=== PATIENT | male | born 1965 | race Caucasian/White ===

== ENCOUNTER 2018-03-18 07:58 | Day surgery (SDC) | payer OTHER ==
[2018-03-15 16:45] VITALS: BMI 33.2
[2018-03-18 09:56] VITALS: TEMP 97.8
[2018-03-18 10:17] VITALS: PULSE 56
[2018-03-18 10:54] VITALS: BP 114/67
--- NOTE | 2018-03-19 09:52 | PATH ---
Surgical Pathology Report Patient Name: PEACE VANEGAS [facility] [place]. Rec. #: [id number] /Age/Gender: 1965 (Age: 52) / M Account: [id number] Location: U-ENDOSCOPY Taken: 03/18/2018 Received: 03/18/2018 Reported: 03/19/2018 Physicians: Jakob Johnston D.O. Specimen(s) Received BX CECAL POLYP Clinical History Colon cancer screening Postoperative diagnosis: Polyp Final Diagnosis CECAL POLYP, POLYPECTOMY: HYPERPLASTIC POLYP, FRAGMENTED. Electronically Signed Vinita Hubbard M.D. Gross Description Received in formalin labeled "cecal polyp," is a 0.4 x 0.3 x 0.1 cm aggregate of mckeon soft tissue fragments. The formalin is filtered and the specimen is entirely submitted in one cassette. 03/18/2018 [facility]03/18/2018
== END 2018-03-18 10:54 | disposition home or self-care (01) ==
LOC: JASU-ENDO 07:58
PROVIDERS: ATTEND Internal Medicine Gastroenterology
PROC: 3E0H8GC Introduction of Other Therapeutic Substance into Lower GI, Via Natural or Artificial Opening Endoscopic (ICD-10-PCS; 2018-03-18)
PROC: 0DBH8ZX Excision of Cecum, Via Natural or Artificial Opening Endoscopic, Diagnostic (ICD-10-PCS; principal; 2018-03-18 09:00)
DX: Z12.11 Encounter for screening for malignant neoplasm of colon (principal); K63.5 Polyp of colon
CPT/HCPCS: 88305-TC

== ENCOUNTER 2018-06-18 14:54 | Inpatient (IN) | payer OTHER ==
--- NOTE | 2018-06-18 15:25 | PDOC ---
Rapid Medical Evaluation Medical Evaluation: Allergies Allergy/AdvReac Type Severity Reaction Status Date / Time No Known Drug Allergies Allergy Verified 08/15/12 15:01 I have performed a brief in-person evaluation of this patient. The patient presents with a chief complaint of: Hx of psoriasis, anxiety (on Paxil), C/O feeling lack of confidence, jittery; states he is hearing voices for past few days; denies S/H ideation; per family, patient is asking strange questions Pertinent physical exam findings: In NAD I have ordered the following: Labs The patient will proceed to the ED for further evaluation. 06/18/18 15:22
--- NOTE | 2018-06-18 16:05 | PDOC ---
History of Present Illness - General Chief Complaint: Psychiatric Stated Complaint: CONFUSION Time Seen by Provider: 06/18/18 15:22 History Source: Patient, Family Exam Limitations: No Limitations - History of Present Illness Initial Comments: 06/18/18 16:08 Patient is a 52M with history of anxiety and OCD here today complaining of bizarre behavior. He was brought in by his family after he was found to be responding to auditory hallucinations, reporting that he was concerned that his phones had been bugged, and yelling out the window at unknown people plotting against him. The family states that he has had some obsessive behaviors in the past, but nothing like this. Denies fevers, chills, headache. Endorses some cramping in his neck and back. Denies chest pain, cough, shortness of breath, abdominal pain and dysuria. Patient reports that he takes paxil and humira, and has for years. He reports that he recently stopped taking his paxil for a few weeks before resuming a couple of days ago. Denies SI/HI. Past History - Past Medical History Allergies/Adverse Reactions: Allergies Allergy/AdvReac Type Severity Reaction Status Date / Time No Known Drug Allergies Allergy Verified 06/18/18 15:22 Home Medications: Ambulatory Orders Adalimumab [Humira] 40 mg SQ UTDICT 08/15/12 Paroxetine HCl [Paxil -] 20 mg PO DAILY 08/15/12 Anemia: No Asthma: No Cancer: No Cardiac Disorders: No CVA: No COPD: No CHF: No Dementia: No Diabetes: No GI Disorders: No Disorders: No HTN: Yes Hypercholesterolemia: No Liver Disease: No Seizures: No Thyroid Disease: No Other medical history: psoariasis - Suicide/Smoking/Psychosocial Hx Smoking History: Unknown if ever smoked Hx Alcohol Use: No Drug/Substance Use Hx: No Substance Use Type: None Hx Substance Use Treatment: No Review of Systems - Review of Systems Able to Perform ROS?: Yes Comments:: 06/18/18 16:13 GENERAL/CONSTITUTIONAL: No fever or chills. No weakness. HEAD, EYES, EARS, NOSE AND THROAT: No change in vision. No sore throat. CARDIOVASCULAR: No chest pain or shortness of breath RESPIRATORY: No cough, wheezing, or hemoptysis. GASTROINTESTINAL: No nausea, vomiting, diarrhea or constipation. GENITOURINARY: No dysuria, frequency, or change in urination. MUSCULOSKELETAL: No joint or muscle swelling or pain. No neck or back pain. SKIN: No rash NEUROLOGIC: No headache, vertigo, loss of consciousness, or change in strength/ sensation. ENDOCRINE: No increased thirst. No abnormal weight change ALLERGIC/IMMUNOLOGIC: No hives or skin allergy. *Physical Exam - Vital Signs Last Vital Signs Temp Pulse Resp BP Pulse Ox 99.2 F 114 H 20 183/100 H 99 06/18/18 15:24 06/18/18 15:24 06/18/18 15:24 06/18/18 15:24 06/18/18 15:24 - Physical Exam Comments: 06/18/18 16:13 GENERAL: Awake, alert, and fully oriented, in no acute distress PSYCH: Mood is anxious, affect congruent, no SI/HI. No pressured speech. No obvious responses to internal stimuli. HEAD: No signs of trauma, normocephalic, atraumatic EYES: PERRLA, EOMI, sclera anicteric, conjunctiva clear ENT: Auricles normal inspection, hearing grossly normal, nares patent, oropharynx clear without exudates. Moist mucosa NECK: Normal ROM, supple, no lymphadenopathy, JVD, or masses LUNGS: No distress, speaks full sentences, clear to auscultation bilaterally HEART: Regular rate and rhythm, normal S1 and S2, no murmurs, rubs or gallops, peripheral pulses normal and equal bilaterally. ABDOMEN: Soft, nontender, normoactive bowel sounds. No guarding, no rebound. No masses EXTREMITIES: Normal inspection, Normal range of motion, no edema. No clubbing or cyanosis. NEUROLOGICAL: Cranial nerves II through XII grossly intact. Normal speech, normal gait, no focal sensorimotor deficits SKIN: Warm, Dry, normal turgor, no rashes or lesions noted. Moderate Sedation - Procedure Monitoring Vital Signs: Procedure Monitoring Vital Signs Temperature 99.2 F 06/18/18 15:24 Pulse Rate 114 H 06/18/18 15:24 Respiratory Rate 20 06/18/18 15:24 Blood Pressure 183/100 H 06/18/18 15:24 O2 Sat by Pulse Oximetry (%) 99 06/18/18 15:24 Procedures - Lumbar Puncture Indication: Meningitis, Encephalitis CT Scan: Yes Betadine Prep: Yes Position: Left lateral decubitus Site: L4-L51 Local Anesthesia: 1% Lidocaine with epi Volume(ml): 3 Lumbar Puncture Kit: Adult Needle Size(gauge): 20 Opening Pressure(mmHg): 25 Traumatic Tap: No Tubes Obtained: 4 Clear Fluid: Yes Complications: No Progress: 06/18/18 19:06 Consent obtained, signed form. Tolerated without complications. ED Treatment Course - LABORATORY CBC & Chemistry Diagram: 06/18/18 16:46 06/18/18 16:46 - RADIOLOGY Radiology Studies Ordered: Category Date Time Status HEAD CT WITHOUT CONTRAST [CT] Stat CT Scan 06/18/18 15:46 Ordered CHEST X-RAY PORTABLE* [RAD] Stat Radiology 06/18/18 15:46 Ordered Medical Decision Making - Medical Decision Making 06/18/18 16:14 Patient is 52M with history of ocd and anxiety here today with abnormal behavior. Vitals notable for tachycardia and hypertension. Suspect related to discontinuation of medications, but will evaluate for mass and infection. 06/18/18 19:07 Rectal temp 100.7, septic order set initiated. CT normal. CBC shows small leukocytosis. CMP reassuring. Lactic acid normal. Given fever and psych changes, meninigits and encephalitis being considered. Lumbar puncture performed as per procedure note. Covered with acyclovir, ceftriaxone, vancomycin. Will admit. Case d/w Dr Durant. *DC/Admit/Observation/Transfer Diagnosis at time of Disposition: Altered mental state, Fever - Discharge Dispostion Condition at time of disposition: Fair Decision to Admit order: Yes - Referrals - Patient Instructions - Post Discharge Activity
[2018-06-18 17:07] LABS: BASO % 1.1 % (0-2.0); EOS % 0.7 % (0-4.5); HEMATOCRIT 45.8 % (35.4-49); HEMOGLOBIN 15.8 GM/dL (11.7-16.9); LYMPH % 24.4 % (8-40); MCH 29.8 pg (25.7-33.7); MCHC 34.4 g/dl (32.0-35.9); MEAN CELL VOLUME 86.6 fl (80-96); MONO % 9.7 % (3.8-10.2); NEUT % 64.1 % (42.8-82.8); PLATELET COUNT 334 K/MM3 (134-434); RBC 5.28 M/mm3 (4.00-5.60); RDW 13.6 % (11.9-15.9); WHITE BLOOD COUNT 10.6 K/mm3 (4.0-10.0)
[2018-06-18 17:17] LABS: URINE APPEARANCE CLEAR; URINE BILIRUBIN NEGATIVE (<2.0 mg/dL); URINE COLOR YELLOW; URINE GLUCOSE (UA) 1+ (NEGATIVE); URINE KETONE NEGATIVE (NEGATIVE); URINE LEUK ESTERASE NEGATIVE (NEGATIVE); URINE NITRITE NEGATIVE (NEGATIVE); URINE PROTEIN 1+ (NEGATIVE); URINE UROBILINOGEN NEGATIVE mg/dL (0.2-1.0)
[2018-06-18 17:29] LABS: EPI CELLS RARE /HPF (FEW); URINE MUCUS RARE
[2018-06-18] MEDS ORDERED: VANCOMYCIN 1 GM in D5W (PRE-DOCKED) 1,000 MG/250 ML IVPB ONE (17:31)
[2018-06-18] MEDS ORDERED: CEFTRIAXONE 2,000 MG in DEXTROSE 5%-WATER - 50 ML IVPB ONE (17:31)
[2018-06-18] MEDS ORDERED: ACYCLOVIR IVPB ONE (17:32)
[2018-06-18] MEDS ORDERED: WATER IVPB ONE (17:32)
[2018-06-18] MEDS ORDERED: DEXTROSE 5% IVPB ONE (17:32)
[2018-06-18 17:35] LABS: ANION GAP 7 MMOL/L (8-16); BLOOD UREA NITROGEN 9 mg/dL (7-18); CALCIUM 9.1 mg/dL (8.5-10.1); CHLORIDE 109 mmol/L (98-107); CO2 25 mmol/L (21-32); CREATININE 1.2 mg/dL (0.55-1.3); GLUCOSE,RANDOM 124 mg/dL (74-106); POTASSIUM 3.8 mmol/L (3.5-5.1); SODIUM 141 mmol/L (136-145)
[2018-06-18] MEDS ORDERED: DEXAMETHASONE SOD PHOSPHATE 10 MG/1 ML VIAL IVPUSH ONE (17:47)
[2018-06-18] MEDS ORDERED: CEFTRIAXONE 2 GM/100 ML BAG IVPB ONE (18:04)
[2018-06-18] MEDS ORDERED: DEXAMETHASONE SOD PHOSPHATE 10 MG/1 ML VIAL ONE (18:12)
[2018-06-18] MEDS ORDERED: VANCOMYCIN 1 GRAM (PRE-DOCKED) 1,000 MG/250 ML BAG IVPB ONE (18:12)
--- NOTE | 2018-06-18 18:21 | CON.PSY ---
Psychiatry Consult Chief Complaint: 52 year old male with a history od DEpression stevie hallucinating according to his family. patient had been Paxil which he stopped taking but restarted few days ago. Patient has fever, LP is being done to rule out PHYSICALLY IMPAIRED TEACHER pathology. patient has been cooperative with procedure, andf willing to sta in the hospital for further eval. Symptoms: reports: Depressed Mood, Hallucinations - Previous Psychiatric Treatment Outpatient: Less than 6 mos ago Inpatient: None - Previous Substance Abuse Treatment Outpatient: None Inpatient: None - Reason for Previous Treatment Reason for Previous Treatment: Major Depression - Current Medications Current Medications: Active Medications Acyclovir 950 mg/ Dextrose 119 mls @ 100 mls/hr IVPB ONCE ONE Stop: 06/18/18 18:31 - Allergies Allergies: Allergies Allergy/AdvReac Type Severity Reaction Status Date / Time No Known Drug Allergies Allergy Verified 06/18/18 15:22 - Current Living Status Usual Living Arrangement: With Significant Other - Current Mental Status Evaluation Appearance: Well Groomed Attitude: Cooperative - Affect Affect: Full Range Appropriateness: Appropriate to Content - Mood Mood: Anxious - Speech/Language Expressive: Coherent - Thought Process Thought Process: Circumstantial - Thought Content Hallucinations: Present Type: Auditory Delusions: Absent - Self Perception Self Perception: No Impairment - Cognition Attention: Alert Orientation: Time Memory, Immediate Recall: Intact Memory, Short Term: 3/3 Memory, Remote with Promptin/3 - Concentration Serial Sevens Intact: No Simple Calculations Intact: Yes - Abstraction Proverb Interpretation: Intact Judgement: Minimally Impaired - Insight Insight: Intact - Impulse Control Impulse Control: Minimally Impaired - Suicidal Ideation Suicidal Ideation: No - Homicidal Ideation Homicidal Ideation: No Assessment/Plan 1) will d/c Paxil until his medicalcondition is evaluated. 2) will follow.
--- NOTE | 2018-06-18 19:08 | PDOC ---
Attending Attestation - Resident Resident Name: Javier Wellington - ED Attending Attestation I have performed the following: I have examined & evaluated the patient, The case was reviewed & discussed with the resident, I agree w/resident's findings & plan, Exceptions are as noted - HPI HPI: 06/18/18 19:02 The patient is a 52 year old male, with a significant past medical history of OCD, who presents to the emergency department with paranoia and delusions today. Pt found to be febrile and hypertensive on arrival. He denies experiencing these symptoms in the past. He states he feels anxious. He denies SI or HI. Denies drug, alcohol use. Denies any ingestions. The patient denies chest pain, shortness of breath, headache and dizziness. Denies focal weakness/numbness. The patient denies fever, chills, nausea, vomit , diarrhea and constipation. The patient denies dysuria, frequency, urgency and hematuria. Allergies: NKDA - Physicial Exam PE: 06/18/18 19:05 agree with resident exam - Medical Decision Making 06/18/18 19:05 49yo M hx depression presents to the ED with of new onset paranoia and auditory hallucinations today Pt cooperative, thus no 1:1 watch needed at this time Vitals with fever, HTN Exam non focal but pt reporting stiff neck Pt's age atypical for new onset psychosis 2/2 schizophrenia or bipolar d/o Could possibly be 2/2 cessation of paxil however there is concern for meningitis or encephalitis due to fever, acute AMS Pt covered with steroids, vanc, ctx, acyclovir. No need for listeria cvg as pt is 52 Pt consented for LP which was performed under my direct supervision by Dr. Wellington. OP 25, clear fluid. Tubes sent off for further evaluation. Pt has been evaluated by Dr. Lyon who will follow, no further recs at this time. Pt admitted for further mgmt. Heart Score/ECG Review #1 06/20/18 00:23 EKG read and interpreted by me. NSR, rate 87. Normal axis and intervals. No ANNA.
[2018-06-18 19:10] LABS: CSF APPEARANCE CLEAR; CSF COLOR COLORLESS; CSF WBC 0
[2018-06-18 19:50] LABS: BF GLUCOSE (CSF ONLY) 84 mg/dL (40-70)
[2018-06-18] MEDS ORDERED: ACETAMINOPHEN 325 MG TABLET (FP) PO PRN (19:52)
--- NOTE | 2018-06-18 19:59 | HP ---
CHIEF COMPLAINT:Hallucination PCP:Dr León HISTORY OF PRESENT ILLNESS: 52 year old male with pmhx of anxiety, ocd, psoriasis who presented to ED with one history of auditory hallucinations , that are telling him that he is an old school , the voices are for people he know , he denies nay homosidal or suicidal iseation , denies any fever, chills, N/V/D/C , denies any abdominal pain , urinary symptoms , denies any joint or back pain , pt reprots he feel left nares are not functioning properly as he has turbinate procedure long time ago pt reports he feels anxious , restless and some chest discofort, denies ay acid reflux pt was on paxil 20 daily and stop using this meds on his own after dental procedure about amonth ago and now restart the medicine 3-5 days ago . pt has psoriasis and is using Humira biweekly , his Staffing Specialist IS DR Licea. pt was found to have temp 100.7 rectally in ED , Neurologist was consulted , LP was done inED , negative for meningitis. Psych was consulted in ED and recommend to monitor off psych meds till medically stable. ER course was notable for: (1)CT head (2)LP (3)cbc , cmp , ceftriaxone , Vancomycin Recent Travel:denies PAST MEDICAL HISTORY: OCD, ANxiety , psoriasis PAST SURGICAL HISTORY: denies Social History: Smoking:denies Alcohol:denies Drugs: denies Family History: Mother with heart disease and arthritis Allergies No Known Drug Allergies Allergy (Verified 06/18/18 15:22) HOME MEDICATIONS: Home Medications Medication Instructions Recorded Adalimumab [Humira] 40 mg SQ UTDICT 08/15/12 Paroxetine HCl [Paxil -] 20 mg PO DAILY 08/15/12 REVIEW OF SYSTEMS anxiety , auditory hallucination telling him that he is an old school , restless. lock of confident but no H/S ideation CONSTITUTIONAL: Absent: fever, chills, diaphoresis, generalized weakness, malaise, loss of appetite, weight change HEENT: Absent: rhinorrhea, nasal congestion, throat pain, throat swelling, difficulty swallowing, mouth swelling, ear pain, eye pain, visual changes CARDIOVASCULAR: Absent: chest pain, syncope, palpitations, irregular heart rate, lightheadedness , peripheral edema RESPIRATORY: Absent: cough, shortness of breath, dyspnea with exertion, orthopnea, wheezing, stridor, hemoptysis GASTROINTESTINAL: Absent: abdominal pain, abdominal distension, nausea, vomiting, diarrhea, constipation, melena, hematochezia GENITOURINARY: Absent: dysuria, frequency, urgency, hesitancy, hematuria, flank pain, genital pain MUSCULOSKELETAL: Absent: myalgia, arthralgia, joint swelling, back pain, neck pain SKIN: Absent: rash, itching, pallor HEMATOLOGIC/IMMUNOLOGIC: Absent: easy bleeding, easy bruising, lymphadenopathy, frequent infections ENDOCRINE: Absent: unexplained weight gain, unexplained weight loss, heat intolerance, cold intolerance NEUROLOGIC: Absent: headache, focal weakness or paresthesias, dizziness, unsteady gait, seizure, mental status changes, bladder or bowel incontinence PSYCHIATRIC: Absent: anxiety, depression, suicidal or homicidal ideation,auditory hallucinations. PHYSICAL EXAMINATION Vital Signs - 24 hr 06/18/18 06/18/18 15:24 17:30 Temperature 99.2 F 100.7 F H Pulse Rate 114 H Pulse Rate [ 73 Left Apical] Respiratory 20 18 Rate Blood Pressure 183/100 H Blood Pressure 164/103 H [Left Arm] O2 Sat by Pulse 99 97 Oximetry (%) GENERAL: AAOx3 in NAD , anxious , restless HEAD: NC/AT EYES: EOMI, Conjunctiva clear, sclera anicteric ENT: moist mucous membrane NECK: Supple, no JVD LUNGS: CTA B/L, no crackles no wheezing no accessory muscle use. HEART: RRR, NSR, normal s1, s2, murmur no M/R/G ABDOMEN:Obese , Soft, ND, NT, +BS 4 Q, no CVA Tenderness LOWER EXTREMITIES: no edema, +2DP pulse, NEUROLOGICAL: No focal deficit. Normal speech. gait not observed. PSYCHIATRIC: Cooperative. Good eye contactanxious , still hearing voices SKIN: Warm, dry, Laboratory Results - last 24 hr 06/18/18 06/18/18 06/18/18 16:46 16:46 16:46 WBC 10.6 H RBC 5.28 Hgb 15.8 Hct 45.8 MCV 86.6 MCH 29.8 D MCHC 34.4 RDW 13.6 D Plt Count 334 MPV 8.0 D Absolute Neuts (auto) 6.8 Neutrophils % 64.1 Lymphocytes % 24.4 D Monocytes % 9.7 D Eosinophils % 0.7 D Basophils % 1.1 D Nucleated RBC % 0 Sodium 141 Potassium 3.8 Chloride 109 H Carbon Dioxide 25 Anion Gap 7 L BUN 9 Creatinine 1.2 Creat Clearance w eGFR 63.33 Random Glucose 124 H Lactic Acid Calcium 9.1 Urine Color Yellow Urine Appearance Clear Urine pH 5.0 Ur Specific [place] 1.028 Urine Protein 1+ H Urine Glucose (UA) 1+ H Urine Ketones Negative Urine Blood 1+ H Urine Nitrite Negative Urine Bilirubin Negative Urine Urobilinogen Negative Ur Leukocyte Esterase Negative Urine WBC (Auto) <1 Urine RBC (Auto) 3 Ur Epithelial Cells Rare Urine Mucus Rare CSF Appearance CSF Color CSF WBC CSF RBC CSF Neutrophils CSF Lymphocytes CSF Eosinophils CSF Basophils CSF Macrophages CSF Plasma Cells CSF Diff Comment CSF Comment CSF Glucose CSF Total Protein 06/18/18 06/18/18 17:47 18:51 WBC RBC Hgb Hct MCV MCH MCHC RDW Plt Count MPV Absolute Neuts (auto) Neutrophils % Lymphocytes % Monocytes % Eosinophils % Basophils % Nucleated RBC % Sodium Potassium Chloride Carbon Dioxide Anion Gap BUN Creatinine Creat Clearance w eGFR Random Glucose Lactic Acid 1.8 Calcium Urine Color Urine Appearance Urine pH Ur Specific [place] Urine Protein Urine Glucose (UA) Urine Ketones Urine Blood Urine Nitrite Urine Bilirubin Urine Urobilinogen Ur Leukocyte Esterase Urine WBC (Auto) Urine RBC (Auto) Ur Epithelial Cells Urine Mucus CSF Appearance Clear CSF Color Colorless CSF WBC 0 CSF RBC 13 CSF Neutrophils No Result Required. CSF Lymphocytes No Result Required. CSF Eosinophils No Result Required. CSF Basophils No Result Required. CSF Macrophages No Result Required. CSF Plasma Cells No Result Required. CSF Diff Comment No Result Required. CSF Comment No Result Required. CSF Glucose 84 H CSF Total Protein 32 CBC, BMP 06/18/18 16:46 06/18/18 16:46 ASSESSMENT/PLAN: 52 year old male with pmhx of anxiety, ocd, psoriasis who stopped taking his paxil one month ago and restart it few days ago presented with auditory hallucination was found to have a fever 100.7 rectal in ED and admitted to R/O Meningitis # Auditory hallucination , # Anxiety * Likely due to stop taking his meds ,vs Humira SE * pt had fever in ED 100.2 will R.O meningitis , LP was done in ED negative * chen cx * ceftriaxone, vanco, acyclovir , dexamethazone prophylaxis , monitor of abx unlikely malignities with no WBC and no signs of infection * urine toxicology * CBC, CMP , ESR, CRP * Neuro consult did LP in ED come back negative * psych consult recommend to monitor off any psych medicine till cleared medically # Elevated blood pressure * essential vs secondary to paxil withdrwal * norvasc 5 mg po once * continue in am if bp still elevated * f.u out pt with PCP # Psoriasis * stable , hold home meds Humira as it might cause AMS as SE # FEN * No standing fluids * Monitory lytes * low sodium diet # Proph * Lovenox 40 SQ daily # Dispo * inpatient M/S * # Case was discussed with Dr Pugh Visit type - Emergency Visit Emergency Visit: Yes ED Registration Date: 06/18/18 Care time: The patient presented to the Emergency Department on the above date and was hospitalized for further evaluation of their emergent condition. - New Patient This patient is new to me today: Yes Date on this admission: 06/18/18 - Critical Care Critical Care patient: No
[2018-06-18] MEDS ORDERED: amLODIPine BESYLATE 5 MG TABLET (FP) PO ONE (20:15)
--- NOTE | 2018-06-18 21:12 | PN ---
Teaching Attending Note Name of Resident: William Durant ATTENDING PHYSICIAN STATEMENT I saw and evaluated the patient. I reviewed the resident's note and discussed the case with the resident. I agree with the resident's findings and plan as documented. SUBJECTIVE: Patient is a 52 year old man with history of anxiety and OCD here today complaining of bizarre behavior. He was brought in by his family after he was found to be responding to auditory hallucinations, reporting that he was concerned that his phones had been bugged, and yelling out the window at unknown people plotting against him. The family states that he has had some obsessive behaviors in the past, but nothing like this. Denies fevers, chills, headache. Endorses some cramping in his neck and back. Denies chest pain, cough , shortness of breath, abdominal pain and dysuria. Patient reports that he takes paxil and humira, and has for years. He reports that he recently stopped taking his paxil for a few weeks before resuming a couple of days ago. Denies suicidal or homicidal ideation. OBJECTIVE: Alert Vital Signs Period Temp Pulse Resp BP Sys/Castillo Pulse Ox Last 24 Hr 99.2 F-100.7 F 73-114 18-20 164-183/100-103 97-99 HEENT: No Jaundice, eye redness or discharge, PERRLA, EOMI. Normocephalic, atraumatic. External ears are normal and hearing is grossly intact. No nasal discharge. Neck: Supple, nontender. No palpable adenopathy or thyromegaly. No JVD Chest: Good effort. Clear to auscultation and percussion. Heart: Regular. No S3, rub or murmur Abdomen: Not distended, soft, nontender and no HSM. No rebound or guarding. Normal bowel sounds. Ext: Peripheral pulses intact. No leg edema. Skin: Warm and dry. No petechiae, rash or ecchymosis. Neuro: Alert. Oriented x3. CN 2-12 grossly intact. Sensation grossly intact in all four extremities and DTR are symmetric. Psych: Flat affect. Poor insight. Denies suicidal or homicidal ideation. Current Medications Generic Name Dose Route Start Last Admin Trade Name Freq PRN Reason Stop Dose Admin Acetaminophen 650 mg 06/18/18 19:52 Tylenol - PO Q4H PRN PAIN LEVEL 1 - 3 Enoxaparin Sodium 40 mg 06/19/18 10:00 Lovenox - SQ DAILY [facility] Ceftriaxone Sodium 1 gm/ 50 mls @ 100 mls/hr 06/19/18 10:00 Dextrose IVPB DAILY [facility] Protocol Vancomycin HCl 1,000 mg 06/19/18 10:00 Vancomycin (Pre-Docked) IVPB DAILY [facility] Protocol Home Medications Medication Instructions Recorded Adalimumab [Humira] 40 mg SQ UTDICT 08/15/12 Paroxetine HCl [Paxil -] 20 mg PO DAILY 08/15/12 Abnormal Lab Results 06/18/18 06/18/18 06/18/18 16:46 16:46 16:46 WBC 10.6 H Chloride 109 H Anion Gap 7 L Random Glucose 124 H Urine Protein 1+ H Urine Glucose (UA) 1+ H Urine Blood 1+ H CSF Glucose 06/18/18 18:51 WBC Chloride Anion Gap Random Glucose Urine Protein Urine Glucose (UA) Urine Blood CSF Glucose 84 H ASSESSMENT AND PLAN: 1. Altered Mental Status - Head CT scan didnot show any acute abnormality. Spinal tap done and patient started on empiric antibiotics for meningitis by the ER staff. However initial CSF analysis does not support the diagnosis of meningitis. Will consult ID. No acute pathology on CXR. ER consult Psychiatry and Neurology. Will hold Humira since it's side effects may explain some of his [employer] symptoms - consult rheumatology. Restart antipsychotic medications once stable. Monitor BP closely - may have undiagnosed hypertension which may need to be treated. Nonpharmacologic measures to control hypertension like weight loss, salt restriction and exercise discussed. 2. DVT prophylaxis - Lovenox 40 mg SQ q 24 hours. 3. Advance directives - Full code
[2018-06-18 21:45] LABS: COCAINE, UR NEGATIVE ng/ml (CUTOFF=300); METHADONE, UR NEGATIVE ng/ml (CUTOFF=300); OPIATES, URI NEGATIVE ng/ml (CUTOFF=300); PHENCYCLIDINE,URINE NEGATIVE ng/ml (CUTOFF=25); URINE AMPHETAMINES NEGATIVE ng/ml (CUTOFF=500); URINE BARBITURATES NEGATIVE ng/ml (CUTOFF=200); URINE BENZODIAZEPINES NEGATIVE ng/ml (CUTOFF=200)
[2018-06-18] MEDS ORDERED: amLODIPine BESYLATE 5 MG TABLET (FP) ONE (22:30)
[2018-06-19 01:40] VITALS: BMI 31.7
[2018-06-19 07:09] LABS: BASO % 0.3 % (0-2.0); EOS % 0.1 % (0-4.5); HEMATOCRIT 43.6 % (35.4-49); HEMOGLOBIN 15.1 GM/dL (11.7-16.9); LYMPH % 13.3 % (8-40); MCH 30.1 pg (25.7-33.7); MCHC 34.6 g/dl (32.0-35.9); MEAN CELL VOLUME 86.9 fl (80-96); MEAN PLT VOLUME 8.2 fl (7.5-11.1); MONO % 4.4 % (3.8-10.2); NEUT % 81.9 % (42.8-82.8); PLATELET COUNT 319 K/MM3 (134-434); RBC 5.02 M/mm3 (4.00-5.60); RDW 13.7 % (11.9-15.9); WHITE BLOOD COUNT 11.6 K/mm3 (4.0-10.0)
[2018-06-19 07:20] LABS: INR 1.14 (0.83-1.09); PROTHROMBIN TIME (PATIENT) 13.5 SEC (9.7-13.0)
[2018-06-19 08:13] LABS: ALBUMIN 3.8 g/dl (3.4-5.0); ALK PHOS 92 U/L (45-117); ANION GAP 8 MMOL/L (8-16); BILIRUBIN,TOTAL 0.7 mg/dL (0.2-1); BLOOD UREA NITROGEN 14 mg/dL (7-18); CALCIUM 9.6 mg/dL (8.5-10.1); CHLORIDE 106 mmol/L (98-107); CO2 25 mmol/L (21-32); CREATININE 1.1 mg/dL (0.55-1.3); GLUCOSE,RANDOM 108 mg/dL (74-106); PHOSPHOROUS 3.8 mg/dL (2.5-4.9); POTASSIUM 4.6 mmol/L (3.5-5.1); SGOT/AST 22 U/L (15-37); SGPT/ALT 41 U/L (13-61); SODIUM 138 mmol/L (136-145)
[2018-06-19] MEDS ORDERED: VANCOMYCIN 1 GM in D5W (PRE-DOCKED) 1,000 MG/250 ML IVPB SCH (10:00)
[2018-06-19] MEDS ORDERED: CEFTRIAXONE 1 GM in DEXTROSE 5%-WATER - 50 ML IVPB SCH (10:00)
[2018-06-19] MEDS: ENOXAPARIN NA (PORCINE) 40 MG/0.4 ML DISP.SYRIN SQ SCH (11:10)
--- NOTE | 2018-06-19 12:02 | EKG ---
Test Reason : Blood Pressure : / mmHG Vent. Rate : 087 BPM Atrial Rate : 087 BPM P-R Int : 148 ms QRS Dur : 104 ms QT Int : 358 ms P-R-T Axes : 063 053 049 degrees QTc Int : 430 ms NORMAL SINUS RHYTHM NONSPECIFIC T WAVE ABNORMALITY ABNORMAL ECG WHEN COMPARED WITH ECG OF 15-AUG-2012 14:27, NO SIGNIFICANT CHANGE WAS FOUND Confirmed by GWENDOLYN CLAROS MD ([id number]) on 06/19/2018 12:02:34 PM Referred By: Confirmed By:GWENDOLYN CLAROS MD
--- NOTE | 2018-06-19 13:57 | PN ---
Physical Exam: SUBJECTIVE: Patient seen and examined at [facility]- no acute events overnight patient is no longer having auditory symptoms he does admit to feeling anxious however. he denies any CP/SOB/N/.V fevers or chills OBJECTIVE: Vital Signs Period Temp Pulse Resp BP Sys/[place] Pulse Ox Last 24 Hr 97.5 F-100.7 F 73-114 17-20 132-183/73-103 97-99 GENERAL: The patient is awake, alert, and fully oriented, in no acute distress. EYES:PEERLA: EOMI no scleral icterus NECK: no JVD; no lymphadenopathy LUNGS: CTA B/L; no rales, rhonchi or wheezing HEART: Regular rate and rhythm, S1, S2 without murmur, rub or gallop. ABDOMEN: Soft, nontender, nondistended, normoactive bowel sounds, no guarding, no rebound, no hepatosplenomegaly, no masses. EXTREMITIES: 2+ pulses, warm, well-perfused, no edema. NEUROLOGICAL: Cranial nerves II through XII grossly intact. Normal speech, gait not observed. PSYCH: Normal mood, normal affect. SKIN: Warm, dry, normal turgor, no rashes or lesions noted Laboratory Results - last 24 hr 06/18/18 06/18/18 06/18/18 16:46 16:46 16:46 WBC 10.6 H RBC 5.28 Hgb 15.8 Hct 45.8 MCV 86.6 MCH 29.8 D MCHC 34.4 RDW 13.6 D Plt Count 334 MPV 8.0 D Absolute Neuts (auto) 6.8 Neutrophils % 64.1 Lymphocytes % 24.4 D Monocytes % 9.7 D Eosinophils % 0.7 D Basophils % 1.1 D Nucleated RBC % 0 ESR PT with INR INR PTT (Actin FS) Sodium 141 Potassium 3.8 Chloride 109 H Carbon Dioxide 25 Anion Gap 7 L BUN 9 Creatinine 1.2 Cancelled Creat Clearance w eGFR 63.33 Random Glucose 124 H Hemoglobin A1c % Specific [place] Cancelled Lactic Acid Calcium 9.1 Phosphorus Total Bilirubin AST ALT Alkaline Phosphatase Troponin I C-Reactive Protein Total Protein Albumin TSH Urine Color Urine Appearance Urine pH Ur Specific [place] Urine Protein Urine Glucose (UA) Urine Ketones Urine Blood Urine Nitrite Urine Bilirubin Urine Urobilinogen Ur Leukocyte Esterase Urine WBC (Auto) Urine RBC (Auto) Ur Epithelial Cells Urine Mucus CSF Appearance CSF Color CSF WBC CSF RBC CSF Neutrophils CSF Lymphocytes CSF Eosinophils CSF Basophils CSF Macrophages CSF Plasma Cells CSF Diff Comment CSF Comment CSF Glucose CSF Total Protein Urine Butalbital Cancelled Ur Butalbital Confirm Cancelled Opiates Screen Urine Opiates Screen Cancelled Meperidine Cancelled Urine Normeperidine Cancelled U Normeperidine GC/MS Cancelled Urine Codeine Cancelled U Codeine Confrm GC/MS Cancelled Urine Morphine Cancelled Morphine Confirm GC/MS Cancelled Urine Hydrocodone Cancelled Ur Hydrocodone (GC/MS) Cancelled Urine Oxycodone Cancelled Ur Oxycodone GC/MS Cancelled Oxymorphone Confirm Cancelled Urine Oxymorphone Cancelled U Oxycodone/Oxymorphon Cancelled Methadone Screen Ur Methadone Cancelled Ur Methadone Confirm Cancelled Ur Hydromorphone Cancelled Ur Hydromorphone (GC/MS) Cancelled Urine Propoxyphene Cancelled U Propoxyphene/M GC/MS Cancelled Barbiturate Screen Ur Barbiturates Screen Cancelled Urine Barbiturates Cancelled Phencyclidine Screen Ur Phencyclidine (PCP) Cancelled Ur PCP Confirm (GC/MS) Cancelled Amphetamines Cancelled Amphetamines Grp GC/MS Cancelled Ur Amphetamines Screen Urine Amphetamine Cancelled Ur Amphetamines, Quant Cancelled Methamphetamine Cancelled Methamphetamine GC/MS Cancelled MDMA (Ecstasy) Screen Urine Amobarbital Cancelled Ur Amobarbital GC/MS Cancelled Urine Pentobarbital Cancelled U Pentobarbital GC/MS Cancelled Urine Phenobarbital Cancelled U Phenobarbital GC/MS Cancelled Urine Secobarbital Cancelled U Secobarbital GC/MS Cancelled Urine Alprazolam Cancelled U OH-Alprazolam GC/MS Cancelled Benzodiazepines Screen U Benzodiazepines Scrn Cancelled Urine Clonazepam Cancelled U 7-Amino Clonazep GC/MS Cancelled Ur Nordiazepam Cancelled Ur Nordiazepam GC/MS Cancelled Flurazepam Cancelled Flurazepam Confirm Cancelled Lorazepam Cancelled Urine Lorazepam Cancelled Ur Oxazepam Cancelled U Oxazepam Confm GC/MS Cancelled Urine Temazepam Cancelled Ur Temazepam (GC/MS) Cancelled Urine Triazolam Cancelled Ur Triazolam (GC/MS) Cancelled Meperidine (GC/MS) Cancelled Ur Meperidine Cancelled Cocaine Screen Cocaine & Metabolite Cancelled Urine Cocaine Cancelled Benzoylecgonine Cancelled Cannabinoids Cancelled Urine Cannabinoids Cancelled U Marijuana (THC) Screen Urine Marijuana (THC) Cancelled Ethyl Alc Confirm Cancelled 06/18/18 06/18/18 06/18/18 16:46 17:17 17:47 WBC RBC Hgb Hct MCV MCH MCHC RDW Plt Count MPV Absolute Neuts (auto) Neutrophils % Lymphocytes % Monocytes % Eosinophils % Basophils % Nucleated RBC % ESR PT with INR INR PTT (Actin FS) Sodium Potassium Chloride Carbon Dioxide Anion Gap BUN Creatinine Creat Clearance w eGFR Random Glucose Hemoglobin A1c % Specific [place] Lactic Acid Calcium Phosphorus Total Bilirubin AST ALT Alkaline Phosphatase Troponin I < 0.02 C-Reactive Protein < 0.3 Total Protein Albumin TSH 1.06 Urine Color Yellow Urine Appearance Clear Urine pH 5.0 Ur Specific [place] 1.028 Urine Protein 1+ H Urine Glucose (UA) 1+ H Urine Ketones Negative Urine Blood 1+ H Urine Nitrite Negative Urine Bilirubin Negative Urine Urobilinogen Negative Ur Leukocyte Esterase Negative Urine WBC (Auto) <1 Urine RBC (Auto) 3 Ur Epithelial Cells Rare Urine Mucus Rare CSF Appearance CSF Color CSF WBC CSF RBC CSF Neutrophils CSF Lymphocytes CSF Eosinophils CSF Basophils CSF Macrophages CSF Plasma Cells CSF Diff Comment CSF Comment CSF Glucose CSF Total Protein Urine Butalbital Ur Butalbital Confirm Opiates Screen Negative Urine Opiates Screen Meperidine Urine Normeperidine U Normeperidine GC/MS Urine Codeine U Codeine Confrm GC/MS Urine Morphine Morphine Confirm GC/MS Urine Hydrocodone Ur Hydrocodone (GC/MS) Urine Oxycodone Ur Oxycodone GC/MS Oxymorphone Confirm Urine Oxymorphone U Oxycodone/Oxymorphon Methadone Screen Negative Ur Methadone Ur Methadone Confirm Ur Hydromorphone Ur Hydromorphone (GC/MS) Urine Propoxyphene U Propoxyphene/M GC/MS Barbiturate Screen Negative Ur Barbiturates Screen Urine Barbiturates Phencyclidine Screen Negative Ur Phencyclidine (PCP) Ur PCP Confirm (GC/MS) Amphetamines Amphetamines Grp GC/MS Ur Amphetamines Screen Negative Urine Amphetamine Ur Amphetamines, Quant Methamphetamine Methamphetamine GC/MS MDMA (Ecstasy) Screen Negative Urine Amobarbital Ur Amobarbital GC/MS Urine Pentobarbital U Pentobarbital GC/MS Urine Phenobarbital U Phenobarbital GC/MS Urine Secobarbital U Secobarbital GC/MS Urine Alprazolam U OH-Alprazolam GC/MS Benzodiazepines Screen Negative U Benzodiazepines Scrn Urine Clonazepam U 7-Amino Clonazep GC/MS Ur Nordiazepam Ur Nordiazepam GC/MS Flurazepam Flurazepam Confirm Lorazepam Urine Lorazepam Ur Oxazepam U Oxazepam Confm GC/MS Urine Temazepam Ur Temazepam (GC/MS) Urine Triazolam Ur Triazolam (GC/MS) Meperidine (GC/MS) Ur Meperidine Cocaine Screen Negative Cocaine & Metabolite Urine Cocaine Benzoylecgonine Cannabinoids Urine Cannabinoids U Marijuana (THC) Screen Negative Urine Marijuana (THC) Ethyl Alc Confirm 06/18/18 06/18/18 06/19/18 17:47 18:51 06:10 WBC 11.6 H RBC 5.02 Hgb 15.1 Hct 43.6 MCV 86.9 MCH 30.1 MCHC 34.6 RDW 13.7 Plt Count 319 MPV 8.2 Absolute Neuts (auto) 9.5 H Neutrophils % 81.9 D Lymphocytes % 13.3 D Monocytes % 4.4 Eosinophils % 0.1 D Basophils % 0.3 Nucleated RBC % 0 ESR PT with INR INR PTT (Actin FS) Sodium Potassium Chloride Carbon Dioxide Anion Gap BUN Creatinine Creat Clearance w eGFR Random Glucose Hemoglobin A1c % Specific [place] Lactic Acid 1.8 Calcium Phosphorus Total Bilirubin AST ALT Alkaline Phosphatase Troponin I C-Reactive Protein Total Protein Albumin TSH Urine Color Urine Appearance Urine pH Ur Specific [place] Urine Protein Urine Glucose (UA) Urine Ketones Urine Blood Urine Nitrite Urine Bilirubin Urine Urobilinogen Ur Leukocyte Esterase Urine WBC (Auto) Urine RBC (Auto) Ur Epithelial Cells Urine Mucus CSF Appearance Clear CSF Color Colorless CSF WBC 0 CSF RBC 13 CSF Neutrophils No Result Required. CSF Lymphocytes No Result Required. CSF Eosinophils No Result Required. CSF Basophils No Result Required. CSF Macrophages No Result Required. CSF Plasma Cells No Result Required. CSF Diff Comment No Result Required. CSF Comment No Result Required. CSF Glucose 84 H CSF Total Protein 32 Urine Butalbital Ur Butalbital Confirm Opiates Screen Urine Opiates Screen Meperidine Urine Normeperidine U Normeperidine GC/MS Urine Codeine U Codeine Confrm GC/MS Urine Morphine Morphine Confirm GC/MS Urine Hydrocodone Ur Hydrocodone (GC/MS) Urine Oxycodone Ur Oxycodone GC/MS Oxymorphone Confirm Urine Oxymorphone U Oxycodone/Oxymorphon Methadone Screen Ur Methadone Ur Methadone Confirm Ur Hydromorphone Ur Hydromorphone (GC/MS) Urine Propoxyphene U Propoxyphene/M GC/MS Barbiturate Screen Ur Barbiturates Screen Urine Barbiturates Phencyclidine Screen Ur Phencyclidine (PCP) Ur PCP Confirm (GC/MS) Amphetamines Amphetamines Grp GC/MS Ur Amphetamines Screen Urine Amphetamine Ur Amphetamines, Quant Methamphetamine Methamphetamine GC/MS MDMA (Ecstasy) Screen Urine Amobarbital Ur Amobarbital GC/MS Urine Pentobarbital U Pentobarbital GC/MS Urine Phenobarbital U Phenobarbital GC/MS Urine Secobarbital U Secobarbital GC/MS Urine Alprazolam U OH-Alprazolam GC/MS Benzodiazepines Screen U Benzodiazepines Scrn Urine Clonazepam U 7-Amino Clonazep GC/MS Ur Nordiazepam Ur Nordiazepam GC/MS Flurazepam Flurazepam Confirm Lorazepam Urine Lorazepam Ur Oxazepam U Oxazepam Confm GC/MS Urine Temazepam Ur Temazepam (GC/MS) Urine Triazolam Ur Triazolam (GC/MS) Meperidine (GC/MS) Ur Meperidine Cocaine Screen Cocaine & Metabolite Urine Cocaine Benzoylecgonine Cannabinoids Urine Cannabinoids U Marijuana (THC) Screen Urine Marijuana (THC) Ethyl Alc Confirm 06/19/18 06/19/18 06/19/18 06:10 06:10 06:10 WBC RBC Hgb Hct MCV MCH MCHC RDW Plt Count MPV Absolute Neuts (auto) Neutrophils % Lymphocytes % Monocytes % Eosinophils % Basophils % Nucleated RBC % ESR PT with INR 13.50 H INR 1.14 H PTT (Actin FS) 36.0 Sodium 138 Potassium 4.6 Chloride 106 Carbon Dioxide 25 Anion Gap 8 BUN 14 Creatinine 1.1 Creat Clearance w eGFR 70.02 Random Glucose 108 H Hemoglobin A1c % Specific [place] Lactic Acid Calcium 9.6 Phosphorus 3.8 Total Bilirubin 0.7 AST 22 ALT 41 Alkaline Phosphatase 92 Troponin I < 0.02 C-Reactive Protein Cancelled < 0.3 Total Protein 8.0 Albumin 3.8 TSH Urine Color Urine Appearance Urine pH Ur Specific [place] Urine Protein Urine Glucose (UA) Urine Ketones Urine Blood Urine Nitrite Urine Bilirubin Urine Urobilinogen Ur Leukocyte Esterase Urine WBC (Auto) Urine RBC (Auto) Ur Epithelial Cells Urine Mucus CSF Appearance CSF Color CSF WBC CSF RBC CSF Neutrophils CSF Lymphocytes CSF Eosinophils CSF Basophils CSF Macrophages CSF Plasma Cells CSF Diff Comment CSF Comment CSF Glucose CSF Total Protein Urine Butalbital Ur Butalbital Confirm Opiates Screen Urine Opiates Screen Meperidine Urine Normeperidine U Normeperidine GC/MS Urine Codeine U Codeine Confrm GC/MS Urine Morphine Morphine Confirm GC/MS Urine Hydrocodone Ur Hydrocodone (GC/MS) Urine Oxycodone Ur Oxycodone GC/MS Oxymorphone Confirm Urine Oxymorphone U Oxycodone/Oxymorphon Methadone Screen Ur Methadone Ur Methadone Confirm Ur Hydromorphone Ur Hydromorphone (GC/MS) Urine Propoxyphene U Propoxyphene/M GC/MS Barbiturate Screen Ur Barbiturates Screen Urine Barbiturates Phencyclidine Screen Ur Phencyclidine (PCP) Ur PCP Confirm (GC/MS) Amphetamines Amphetamines Grp GC/MS Ur Amphetamines Screen Urine Amphetamine Ur Amphetamines, Quant Methamphetamine Methamphetamine GC/MS MDMA (Ecstasy) Screen Urine Amobarbital Ur Amobarbital GC/MS Urine Pentobarbital U Pentobarbital GC/MS Urine Phenobarbital U Phenobarbital GC/MS Urine Secobarbital U Secobarbital GC/MS Urine Alprazolam U OH-Alprazolam GC/MS Benzodiazepines Screen U Benzodiazepines Scrn Urine Clonazepam U 7-Amino Clonazep GC/MS Ur Nordiazepam Ur Nordiazepam GC/MS Flurazepam Flurazepam Confirm Lorazepam Urine Lorazepam Ur Oxazepam U Oxazepam Confm GC/MS Urine Temazepam Ur Temazepam (GC/MS) Urine Triazolam Ur Triazolam (GC/MS) Meperidine (GC/MS) Ur Meperidine Cocaine Screen Cocaine & Metabolite Urine Cocaine Benzoylecgonine Cannabinoids Urine Cannabinoids U Marijuana (THC) Screen Urine Marijuana (THC) Ethyl Alc Confirm 06/19/18 06/19/18 06:10 06:10 WBC RBC Hgb Hct MCV MCH MCHC RDW Plt Count MPV Absolute Neuts (auto) Neutrophils % Lymphocytes % Monocytes % Eosinophils % Basophils % Nucleated RBC % ESR 5 PT with INR INR PTT (Actin FS) Sodium Potassium Chloride Carbon Dioxide Anion Gap BUN Creatinine Creat Clearance w eGFR Random Glucose Hemoglobin A1c % 5.3 Specific [place] Lactic Acid Calcium Phosphorus Total Bilirubin AST ALT Alkaline Phosphatase Troponin I C-Reactive Protein Total Protein Albumin TSH Urine Color Urine Appearance Urine pH Ur Specific [place] Urine Protein Urine Glucose (UA) Urine Ketones Urine Blood Urine Nitrite Urine Bilirubin Urine Urobilinogen Ur Leukocyte Esterase Urine WBC (Auto) Urine RBC (Auto) Ur Epithelial Cells Urine Mucus CSF Appearance CSF Color CSF WBC CSF RBC CSF Neutrophils CSF Lymphocytes CSF Eosinophils CSF Basophils CSF Macrophages CSF Plasma Cells CSF Diff Comment CSF Comment CSF Glucose CSF Total Protein Urine Butalbital Ur Butalbital Confirm Opiates Screen Urine Opiates Screen Meperidine Urine Normeperidine U Normeperidine GC/MS Urine Codeine U Codeine Confrm GC/MS Urine Morphine Morphine Confirm GC/MS Urine Hydrocodone Ur Hydrocodone (GC/MS) Urine Oxycodone Ur Oxycodone GC/MS Oxymorphone Confirm Urine Oxymorphone U Oxycodone/Oxymorphon Methadone Screen Ur Methadone Ur Methadone Confirm Ur Hydromorphone Ur Hydromorphone (GC/MS) Urine Propoxyphene U Propoxyphene/M GC/MS Barbiturate Screen Ur Barbiturates Screen Urine Barbiturates Phencyclidine Screen Ur Phencyclidine (PCP) Ur PCP Confirm (GC/MS) Amphetamines Amphetamines Grp GC/MS Ur Amphetamines Screen Urine Amphetamine Ur Amphetamines, Quant Methamphetamine Methamphetamine GC/MS MDMA (Ecstasy) Screen Urine Amobarbital Ur Amobarbital GC/MS Urine Pentobarbital U Pentobarbital GC/MS Urine Phenobarbital U Phenobarbital GC/MS Urine Secobarbital U Secobarbital GC/MS Urine Alprazolam U OH-Alprazolam GC/MS Benzodiazepines Screen U Benzodiazepines Scrn Urine Clonazepam U 7-Amino Clonazep GC/MS Ur Nordiazepam Ur Nordiazepam GC/MS Flurazepam Flurazepam Confirm Lorazepam Urine Lorazepam Ur Oxazepam U Oxazepam Confm GC/MS Urine Temazepam Ur Temazepam (GC/MS) Urine Triazolam Ur Triazolam (GC/MS) Meperidine (GC/MS) Ur Meperidine Cocaine Screen Cocaine & Metabolite Urine Cocaine Benzoylecgonine Cannabinoids Urine Cannabinoids U Marijuana (THC) Screen Urine Marijuana (THC) Ethyl Alc Confirm Active Medications Generic Name Dose Route Start Last Admin Trade Name Freq PRN Reason Stop Dose Admin Acetaminophen 650 mg 06/18/18 19:52 Tylenol - PO Q4H PRN PAIN LEVEL 1 - 3 Enoxaparin Sodium 40 mg 06/19/18 10:00 06/19/18 11:10 Lovenox - SQ 40 mg DAILY [place] Administration ASSESSMENT/PLAN: 52 year old male with pmhx of anxiety, ocd, psoriasis who stopped taking his paxil one month ago and restart it few days ago presented with auditory hallucination was found to have a fever 100.7 rectal in ED # Auditory hallucination , * Likely due to stop taking his meds , * urine toxicology negative * Neuro consult did LP in ED come back negative * psych consult restart paxil * # Elevated blood pressure * essential vs secondary to paxil withdrwal * norvasc 5 mg po once * continue in am if bp still elevated * f.u out pt with PCP # Psoriasis * stable , hold home meds Humira as it might cause AMS as SE # FEN * No standing fluids * Monitory lytes * low sodium diet # Proph * Lovenox 40 SQ daily # Dispo * inpatient M/S Problem List - Problems (1) Anxiety Code(s): F41.9 - ANXIETY DISORDER, UNSPECIFIED (2) Altered mental state Code(s): R41.82 - ALTERED MENTAL STATUS, UNSPECIFIED (3) Auditory hallucination Code(s): R44.0 - AUDITORY HALLUCINATIONS (4) Fever Code(s): R50.9 - FEVER, UNSPECIFIED Visit type - Emergency Visit Emergency Visit: Yes ED Registration Date: 06/18/18 Care time: The patient presented to the Emergency Department on the above date and was hospitalized for further evaluation of their emergent condition. - New Patient This patient is new to me today: Yes Date on this admission: 06/19/18 - Critical Care Critical Care patient: No
--- NOTE | 2018-06-19 15:15 | PN ---
Progress Note (short form) - Note Progress Note: ID consult dictated imp/reccd 52 yo man with history anxiety, OCD, psoriasis on paxil and humira recently d/jg paxil when he had some tooth work, then resumed a few days later brought by family last night with increased anxiety, paranoia and auditory hallucinations rectal temp 100.7 no headache no neck stiffness no rash no travel no vaccines no cold symptoms no nausea or vomiting had LP in ED with no WBC and normal csf protein received decadron, vancomycin, rocephin, acyclovir in ED alert and oriented today no signs meningitis would agree with holding further antibiotics f/u with neurology and psychiatry history of psoriasis- on humira Problem List - Problems (1) Anxiety Code(s): F41.9 - ANXIETY DISORDER, UNSPECIFIED (2) Auditory hallucination Code(s): R44.0 - AUDITORY HALLUCINATIONS
[2018-06-19] MEDS ORDERED: PARoxetine HCL 20 MG TABLET PO ONE (16:45)
--- NOTE | 2018-06-19 17:21 | PN ---
Teaching Attending Note Name of Resident: Shakira Morton ATTENDING PHYSICIAN STATEMENT I saw and evaluated the patient. I reviewed the resident's note and discussed the case with the resident. I agree with the resident's findings and plan as documented. SUBJECTIVE: no hallucinations today. he remembers vaguely that he had auditory hallucinations and he thought the voices were real. he denies any SI , or t rying to talk or obey the voices . he admits that voices were talking to each other but not to him . He feels better and back to normal today.he reported stopping his paxil 3 weeks ago due to dental procedure and he resumed 3 days ago ( he denies restarting paxil but reports ) indicates that patient was very paranoid for past 2 weeks, and was heard talking and screaming off the window. more OCD sx and more paranoia . he declined out pt psych eval before. at this point, he denies neck pain, WELLS , or visual changes . he denies visual or tactile hallucinations OBJECTIVE: NAD. awake, alert , oriented x 3 CV: RRR, no MRG Lungs: CTAB ext : no edema Abd: soft, NT , ND , NL BS . Neuro: EOMI, round equal pupils, reactive to light . no facial droop, tongue and uvula at mid line strength 5/5 in upper and lower extremities proximally and distally. sensation to light touch NL. 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 Literature search indicated, hallucination and psychotic features after discontinuation of SSRI, particularly Paxil , especially after prolonged use ( 20 yrs in his case). there are no signs of systemic or CORE OV[employer] TENDER infections, no other metabolic conditions to explain presentation . - resume paxil. give dose now then tomorrow - monitor mental status - refer to psych as outpt. if psychotic features persist after resumption of SSRI, then he needs to be evaluated for schizophrenia 2- Fever: unexplained low grade fever. no source coul dbe pointed. - monitor off Abx - leukocytosis is worse , but he received dexamethasone yesterday - follow CSF cx 3- Psoriasis : will resume Humira at dc
--- NOTE | 2018-06-19 17:35 | CONS ---
DATE OF CONSULTATION: DATE OF DICTATION: 06/19/2018 INFECTIOUS DISEASE CONSULTATION REQUESTING PHYSICIAN: Hospitalist Service CONSULTING PHYSICIAN: Analy Woodson M.D. HISTORY OF PRESENT ILLNESS: This is a 52-year-old man who has a history of psoriasis, anxiety, and obsessive-compulsive disorder on Paxil and Humira for a long time, brought to the ER after his family noted he was behaving oddly yesterday. He was more anxious and has paranoia and reported auditory hallucinations. He was brought to the emergency room where he was noted to have a rectal temperature of 100.7. He denied any fevers or chills. He reported feeling well. There is no history of any travel. He does not have a sore throat. He has no cough, no nausea or vomiting, diarrhea or dysuria. He has no skin rash. There is no history of any travel. Of note, he recently had some dental work 1-2 weeks ago at which time he stopped his Paxil, which his reports she asked him to later resume, which he did for a couple of days as well. He denies any headache as well. In the emergency room, he had a spinal TAP with zero white cells, 13 red cells, normal protein and a glucose of 84. I am asked to comment. He received vancomycin, ceftriaxone and acyclovir as well as Decadron in the ER. He is currently resting comfortably. He has no fevers. He feels well and has no complaints whatsoever. PAST MEDICAL HISTORY: As stated, notable for psoriasis for which he has been on Humira for years, anxiety, and obsessive-compulsive disorder. SURGICAL HISTORY: He denies any surgical history. SOCIAL HISTORY: He lives at home with his family. Denies any cigarette, alcohol, or substance use. There is no history of any travel. They have 3 cats who do not go out, and 2 snakes that his son takes care of. ALLERGIES: No known drug allergies. MEDICATION: Humira and Paxil. REVIEW OF SYSTEMS: As per HPI. PHYSICAL EXAMINATION: VITAL SIGNS: He is currently afebrile. Temperature is 98.2, pulse 84, blood pressure 144/73, respiratory rate 18, he is saturating 99%. HEENT: Normocephalic. Eyes are anicteric. In his mouth he has no thrush. He has no evidence of any gum disease or any erythema in his mouth. NECK: Supple. He has no meningeal signs. There is no adenopathy. LUNGS: Clear to auscultation. HEART: Regular rate and rhythm. ABDOMEN: Soft, nontender. EXTREMITIES: Without edema. He has no rash. LABORATORY: White count on admission is 10.6, this morning is 11.6, hemoglobin 15, platelets are 319. Chemistries are normal. TSH is 1.06. Urinalysis is less than 1 white cell. The CSF study as previously stated. Urine toxicology screen is negative. IMPRESSION: In summary, this is a 52-year-old man admitted with change in his behavior at home with increased anxiety, paranoia, and auditory hallucinations. There is no evidence of any acute infectious central nervous system process. I would agree with stopping all his antibiotics and observing him. Head CT was done and was negative, as well as chest x-ray. His cultures have been obtained, which can be followed up. I would agree with holding further antibiotics. I would suggest followup with neurology as well as psychiatry. History of psoriasis on Humira. Further recommendations to follow. Marisa [id number]
[2018-06-20 07:16] LABS: HEMATOCRIT 44.5 % (35.4-49); HEMOGLOBIN 15.2 GM/dL (11.7-16.9); MCHC 34.3 g/dl (32.0-35.9); MEAN CELL VOLUME 87.4 fl (80-96); MEAN PLT VOLUME 8.3 fl (7.5-11.1); PLATELET COUNT 300 K/MM3 (134-434); RBC 5.09 M/mm3 (4.00-5.60); WHITE BLOOD COUNT 9.7 K/mm3 (4.0-10.0)
[2018-06-20 07:36] LABS: ANION GAP 5 MMOL/L (8-16); BLOOD UREA NITROGEN 19 mg/dL (7-18); CALCIUM 8.9 mg/dL (8.5-10.1); CHLORIDE 106 mmol/L (98-107); CO2 27 mmol/L (21-32); CREATININE 1.2 mg/dL (0.55-1.3); GLUCOSE,RANDOM 82 mg/dL (74-106); MAGNESIUM 2.2 mg/dL (1.8-2.4); PHOSPHOROUS 4.2 mg/dL (2.5-4.9); POTASSIUM 4.5 mmol/L (3.5-5.1); SODIUM 138 mmol/L (136-145)
[2018-06-20 08:48] VITALS: BP 127/77; PULSE 70; TEMP 98
[2018-06-20] MEDS ORDERED: PARoxetine HCL 20 MG TABLET PO SCH (10:00)
[2018-06-20] MEDS: ENOXAPARIN NA (PORCINE) 40 MG/0.4 ML DISP.SYRIN SQ SCH (10:08)
--- NOTE | 2018-06-20 13:59 | PN ---
Teaching Attending Note Name of Resident: Shakira Morton ATTENDING PHYSICIAN STATEMENT I saw and evaluated the patient. I reviewed the resident's note and discussed the case with the resident. I agree with the resident's findings and plan as documented. SUBJECTIVE: No WELSL , no pain , no visual changes. he had a WELLS this am that started after LP, / and improved with tylenol. he denies numbness, tingling or weakness. OBJECTIVE: NAD. awake, alert , oriented x 3 CV: RRR, no MRG Lungs: CTAB Ext : no edema ASSESSMENT AND PLAN: 52 y/o man with h/o Anxiety, OCD, and psoriasis who presented with auditory hallucinations and increased paranoia 1- Auditory hallucinations and paranoia: most likely cause is discontinuation syndrome after abrupt cessation of PAxil. - cont paxil . sx resolved. - f/u with Dr. Boyd as out pt . - pt was instructed not stop paxil abruptly 2- Fever: no source, resolved. No Abx indicated d/w Id, Ok to dc before final CSF cx is back 3- Psoriasis : will resume Humira at dc 4- post LP WELLS. tylenol and coffee dc home today Microbiology 06/18/18 16:46 Urine - Urine Clean Catch Urine Culture - Final NO GROWTH OBTAINED 06/18/18 17:47 Blood - Peripheral Venous Blood Culture - Preliminary NO GROWTH OBTAINED AFTER 24 HOURS, INCUBATION TO CONTINUE FOR 4 DAYS. 06/18/18 17:47 Blood - Peripheral Venous Blood Culture - Preliminary NO GROWTH OBTAINED AFTER 24 HOURS, INCUBATION TO CONTINUE FOR 4 DAYS. 06/18/18 18:51 Cerebral Spinal Fluid - Lumbar Puncture Gram Stain - Final 06/18/18 18:51 Cerebral Spinal Fluid - Lumbar Puncture CSF Culture - Preliminary
--- NOTE | 2018-06-20 14:03 | DS ---
Physical Exam: SUBJECTIVE: Patient seen and examined at bedside no acute events overnight patient states that he is feeling better and is no longer having hallucinations ; denies any CP/SOB/N/V fevers or chillls OBJECTIVE: Vital Signs Period Temp Pulse Resp BP Sys/Castillo Pulse Ox Last 24 Hr 97.3 F-98.6 F 70-90 18-18 127-140/74-87 99-99 PHYSICAL EXAM GENERAL: The patient is awake, alert, and fully oriented, in no acute distress. EYES: PEERLA: EOMI no scleral icterus NECK: no JVD; no lymphadenopathy LUNGS: CTA B/l; no rales, rhonchi or wheezing HEART: Regular rate and rhythm, S1, S2 without murmur, rub or gallop. ABDOMEN: Soft, nontender, nondistended, normoactive bowel sounds, no guarding, no rebound, no hepatosplenomegaly, no masses. EXTREMITIES: 2+ pulses, warm, well-perfused, no edema. . PSYCH: Normal mood, normal affect. SKIN: Warm, dry, normal turgor, no rashes or lesions noted. LABS Laboratory Results - last 24 hr 06/19/18 06/20/18 06/20/18 13:00 06:20 06:20 WBC 9.7 RBC 5.09 Hgb 15.2 Hct 44.5 MCV 87.4 MCH 30.0 MCHC 34.3 RDW 14.0 Plt Count 300 MPV 8.3 Sodium 138 Potassium 4.5 Chloride 106 Carbon Dioxide 27 Anion Gap 5 L BUN 19 H Creatinine 1.2 Creat Clearance w eGFR 63.33 Random Glucose 82 Calcium 8.9 Phosphorus 4.2 Magnesium 2.2 Influenza A (Rapid) Negative Influenza B (Rapid) Negative HOSPITAL COURSE: Date of Admission:06/18/18 52 y/o male with PMH of anxiety, OCD, psoriasis presented to the ED after he had been having auditory hallucinations. patient states that about 3 weeks ago he abruptlu stopped his paxil due to a dental procedure and restarted it just a few day ago- for about a week and a half he had been behaving erratically and having auditory hallucinations- he denied any SI or HI but did endorse he was having paraniod delusions. per his he was screaming out windows; making music louder to stop the voices; talkiing on his cell phone to imaginary people. on arrival to the ED patient had a fever of 100.7 and an elevated WBC so roberts LP was done which gram stain is negative; he was given one time dose of dexamthesaone/acyclovie/vanc/ceftriaxone. he was seen by psych he suggested to put him back on the paxil as this was likely caused by his abruptt withdrawal of the medication. he remained afebile; his WBC normalized and he was no longer having hallucinations- he was stable to be dc home and was given referral to a psychiatrist as he had not been seeing regrly and also to follow up with his PCP within one week Date of Discharge: 06/20/18 Minutes to complete discharge: 39 Discharge Summary Reason For Visit: ALTERED MENTAL STATUS Current Active Problems Withdrawal syndrome (Acute) Anxiety (Chronic) Condition: Stable - Instructions Diet, Activity, Other Instructions: You came to the hospital with complaints of auditory hallucinations. We did an infectious workup on you which was negative and you were also seen by a psychiatrist here who suggested to continue with the paxil and to see a psychiatrist. These symptoms were likely caused by the abrupt discontinuation of your Paxil. Please continue taking your Humira and Paxil 20mg DAILY Please see Dr. León within a week We are also referring you to the psychiatrist, Dr. Boyd for you to see upon discharge *if you begin to experience worsening hallucinations, change in mental status, chest pains, shortness of breath, fevers, please return to the emergency room immediately Referrals: Andrew León MD [Primary Care Provider] - 1 Week Leah Boyd MD [Staff Physician] - 1 Week Disposition: HOME - Home Medications Comprehensive Discharge Medication List: Ambulatory Orders Adalimumab [Humira] 40 mg SQ UTDICT 08/15/12 Paroxetine HCl [Paxil -] 20 mg PO DAILY 08/15/12 Problem List - Problems (1) Anxiety Code(s): F41.9 - ANXIETY DISORDER, UNSPECIFIED (2) Altered mental state Code(s): R41.82 - ALTERED MENTAL STATUS, UNSPECIFIED (3) Auditory hallucination Code(s): R44.0 - AUDITORY HALLUCINATIONS (4) Fever Code(s): R50.9 - FEVER, UNSPECIFIED This patient is new to me today: No Emergency Visit: Yes ED Registration Date: 06/18/18 Care time: The patient presented to the Emergency Department on the above date and was hospitalized for further evaluation of their emergent condition. Critical Care patient: No - Discharge Referral Referred to [facility] Yes Physician Referral: Andrew Ernst MD ([facility])
[2018-06-25 16:18] LABS: MUMPS AB IGG CSF < 5.0 AU/mL (<=10.9)
== END 2018-06-20 14:47 | disposition home or self-care (01) | DRG 880 ==
LOC: JER 14:54 → JERBED 17:48 → J5S 06-19 01:13
PROVIDERS: ADMIT Internal Medicine; ATTEND Internal Medicine
PROC: 009U3ZZ Drainage of Spinal Canal, Percutaneous Approach (ICD-10-PCS; principal; 2018-06-18)
PROC: B01BZZZ Fluoroscopy of Spinal Cord (ICD-10-PCS; 2018-06-18)
DX: R44.0 Auditory hallucinations (principal); F42.9 Obsessive-compulsive disorder, unspecified; R50.9 Fever, unspecified; F22 Delusional disorders; I10 Essential (primary) hypertension; L40.9 Psoriasis, unspecified; F41.8 Other specified anxiety disorders; G97.1 Other reaction to spinal and lumbar puncture; Z91.14 Patient's other noncompliance with medication regimen
CPT/HCPCS: 36415; 70450-TC; 71045-TC-FY; 80048; 80053; 80307; 81003; 81015; 82945; 83036; 83605; 83735; 84100; 84157; 84443; 84484; 85025; 85027; 85610; 85651; 85730; 86140; 86694; 86735; 86765; 86787; 86788; 86789; 87040; 87070; 87086; 87205; 87529; 87804; 93005; 93010; 99285-25; J1100

== ENCOUNTER 2023-03-24 12:24 | Emergency (ER) | payer OTHER ==
[2023-03-24 12:34] VITALS: RESP 18; BMI 28.0
[2023-03-24] MEDS ORDERED: DIPHTH,PERTUSS(ACELL),TET 0.5 ML DISP.SYRIN IM ONE ×3 (13:05→15:24)
[2023-03-24] MEDS ORDERED: CEFAZOLIN 1 GM in DEXTROSE 5%-WATER - 50 ML IVPB ONE (14:16)
[2023-03-24] MEDS ORDERED: ceFAZolin SODIUM 1 GM VIAL ONE (14:38)
[2023-03-24 15:21] LABS: BASO % 1.2 % (0-2.0); EOS % 2.4 % (0-4.5); HEMATOCRIT 40.6 % (35.4-49); HEMOGLOBIN 13.8 GM/dL (11.7-16.9); LYMPH % 10.7 % (8-40); MCH 28.6 pg (25.7-33.7); MCHC 33.9 g/dl (32.0-35.9); MEAN CELL VOLUME 84.5 fl (80-96); MEAN PLT VOLUME 7.2 fl (7.5-11.1); MONO % 12.5 % (3.8-10.2); NEUT % 73.2 % (42.8-82.8); PLATELET COUNT 385 10^3/uL (134-434); RBC 4.81 M/mm3 (4.00-5.60); RDW 13.7 % (11.9-15.9); WHITE BLOOD COUNT 9.9 K/mm3 (4.0-10.0)
[2023-03-24 15:32] LABS: INR 1.2 (0.83-1.09); PROTHROMBIN TIME (PATIENT) 13.9 SEC (9.7-13.0)
[2023-03-24 15:34] LABS: ACTIVATED PTT 37.8 SECONDS (25.2-36.5)
[2023-03-24 15:45] LABS: POTASSIUM 4.7 mmol/L (3.5-5.1)
[2023-03-24 15:47] LABS: ALBUMIN 3.6 g/dl (3.4-5.0); BLOOD UREA NITROGEN 13.6 mg/dL (7-18); CALCIUM 9.4 mg/dL (8.5-10.1)
[2023-03-24 15:51] LABS: CREATININE 1.1 mg/dL (0.55-1.3)
[2023-03-24 15:52] LABS: BILIRUBIN,TOTAL 0.6 mg/dL (0.2-1); TOT PROT 7.6 g/dl (6.4-8.2)
[2023-03-24] MEDS ORDERED: TRANEXAMIC ACID 1000 MG/10 ML VIAL ONE (15:59)
[2023-03-24] MEDS ORDERED: FENTANYL CITRATE/PF 50 MCG/ML VIAL ONE (16:11)
[2023-03-24] MEDS ORDERED: ONDANSETRON 4 MG/2 ML VIAL ONE (16:14)
[2023-03-24] MEDS ORDERED: EPINEPHrine 1:10,000 (P-F SYR) 1 MG/10 ML DISP.SYRIN ONE (16:36)
[2023-03-24] MEDS ORDERED: ONDANSETRON 4 MG/2 ML VIAL IVPUSH ONE (17:13)
[2023-03-24 17:39] LABS: BASO % 1.3 % (0-2.0); EOS % 0.7 % (0-4.5); HEMATOCRIT 41.3 % (35.4-49); HEMOGLOBIN 13.9 GM/dL (11.7-16.9); LYMPH % 7.2 % (8-40); MCH 28.2 pg (25.7-33.7); MCHC 33.6 g/dl (32.0-35.9); MEAN PLT VOLUME 7.2 fl (7.5-11.1); MONO % 7.1 % (3.8-10.2); NEUT % 83.7 % (42.8-82.8); PLATELET COUNT 318 10^3/uL (134-434); RBC 4.91 M/mm3 (4.00-5.60); RDW 13.9 % (11.9-15.9); WHITE BLOOD COUNT 10.9 K/mm3 (4.0-10.0)
[2023-03-24 17:40] VITALS: BP 138/74; PULSE 84
[2023-03-24 17:53] VITALS: TEMP 98
== END 2023-03-24 17:54 | disposition short-term general hospital (02) ==
LOC: JER 12:24
PROC: 3E03329 Introduction of Other Anti-infective into Peripheral Vein, Percutaneous Approach (ICD-10-PCS; principal; 2023-03-24)
PROC: 3E033GC Introduction of Other Therapeutic Substance into Peripheral Vein, Percutaneous Approach (ICD-10-PCS; 2023-03-24)
PROC: 3E033GC Introduction of Other Therapeutic Substance into Peripheral Vein, Percutaneous Approach (ICD-10-PCS; 2023-03-24)
PROC: 3E0234Z Introduction of Serum, Toxoid and Vaccine into Muscle, Percutaneous Approach (ICD-10-PCS; 2023-03-24)
DX: S31.010A Laceration without foreign body of lower back and pelvis without penetration into retroperitoneum, initial encounter (principal); R55 Syncope and collapse; W01.198A Fall on same level from slipping, tripping and stumbling with subsequent striking against other object, initial encounter; W26.8XXA Contact with other sharp object(s), not elsewhere classified, initial encounter; R11.0 Nausea
CPT/HCPCS: 36415; 70450-TC; 71260-TC; 72125-TC; 74177-TC; 80053; 82962; 84484; 85025; 85610; 85730; 90715; 99285-25; P9058; Q9967

== ENCOUNTER 2023-07-10 04:50 | Day surgery (SDC) | payer OTHER ==
[2023-07-09 09:43] VITALS: BMI 27.6
[2023-07-10 10:40] VITALS: TEMP 97.8
[2023-07-10 11:16] VITALS: RESP 20
[2023-07-10 11:17] VITALS: BP 118/90; PULSE 60
== END 2023-07-10 11:17 | disposition home or self-care (01) ==
LOC: JASU-ENDO 04:50
PROVIDERS: ATTEND Internal Medicine Gastroenterology
PROC: 0DJD8ZZ Inspection of Lower Intestinal Tract, Via Natural or Artificial Opening Endoscopic (ICD-10-PCS; principal; 2023-07-10 09:30)
DX: Z12.11 Encounter for screening for malignant neoplasm of colon (principal); K64.8 Other hemorrhoids; K62.89 Other specified diseases of anus and rectum; I10 Essential (primary) hypertension
CPT/HCPCS: 81025